=== PATIENT | female | born 1965 | race Caucasian/White ===

== ENCOUNTER → 2018-10-20 | Outpatient (CLI) | payer BC ==
--- NOTE | 2018-10-20 17:03 | REPMRS ---
Patient History The patient states she had a clinical breast exam in 10/2018. Patient is postmenopausal. No known family history of cancer. No Hormone Replacement Therapy Digital Woman Screen Mammo: October 20, 2018 - Exam #: [id number] Bilateral CC and MLO view(s) were taken. Technologist: Gloria Ennis, Technologist Prior study comparison: July 15, 2017, digital woman screen mammo performed at [facility]. July 09, 2016, digital woman screen mammo performed at [facility]. May 09, 2015, digital woman screen mammo performed at [facility]. FINDINGS: The breast tissue is heterogeneously dense. This may lower the sensitivity of mammography. There is a moderate amount of heterogeneously dense fibroglandular tissue which is fairly symmetric. There is no interval development of dominant mass, architectural distortion, or clustered microcalcification typical of malignancy. There has been no change in the appearance of the mammogram from the prior studies. 3-D tomosynthesis shows no additional findings. Assessment: BI-RADS/ACR category 1 mammogram. Negative Mammogram. Recommendation Routine screening mammogram of both breasts in 1 year (for women over age 40). This patient's Lifetime Breast Cancer RIsk is estimated at 12.0 %. This mammogram was interpreted with the aid of an FDA-approved computer-aided dectection system. Electronically Signed By: Tee Ricci MD 10/20/18 [id number]
== END ==
LOC: M WHC 14:09
PROVIDERS: ATTEND Nurse Practitioner Women's Health
DX: Z12.31 Encounter for screening mammogram for malignant neoplasm of breast (principal)

== ENCOUNTER → 2019-11-19 | Outpatient (CLI) | payer BC, OTHER ==
--- NOTE | 2019-11-19 11:38 | REPMRS ---
Patient History The patient states she had a clinical breast exam in November 2019. No known family history of cancer. No Hormone Replacement Therapy Digital Woman Screen Mammo: November 19, 2019 - Exam #: [id number] Bilateral CC and MLO view(s) were taken. Technologist: Emily Diaz, Technologist Prior study comparison: October 20, 2018, bilateral digital woman screen mammo performed at [facility]. July 15, 2017, digital woman screen mammo performed at [facility]. July 09, 2016, digital woman screen mammo performed at [facility]. FINDINGS: The breast tissue is heterogeneously dense. This may lower the sensitivity of mammography. There is a moderate amount of heterogeneously dense fibroglandular tissue which is fairly symmetric. There is no interval development of dominant mass, architectural distortion, or grouped microcalcification typical of malignancy. There has been no change in the appearance of the mammogram from the prior studies. 3-D tomosynthesis shows no additional findings. Assessment: BI-RADS/ACR category 1 mammogram. Negative Mammogram. Recommendation Routine screening mammogram of both breasts in 1 year (for women over age 40). This patient's Lifetime Breast Cancer RIsk is estimated at 11.4 %. This mammogram was interpreted with the aid of an FDA-approved computer-aided dectection system. Electronically Signed By: Tee Ricci MD 11/19/19 [id number]
== END ==
LOC: M WHC 10:29
PROVIDERS: ATTEND Nurse Practitioner Women's Health
DX: Z12.31 Encounter for screening mammogram for malignant neoplasm of breast (principal)

== ENCOUNTER → 2019-11-19 | Outpatient (REF) | payer OTHER | LOC: M SFHCWAGY 13:06 | PROVIDERS: ATTEND Nurse Practitioner Women's Health | DX: Z12.4 Encounter for screening for malignant neoplasm of cervix (principal) ==

== ENCOUNTER → 2020-12-30 | Outpatient (CLI) | payer BC, OTHER ==
--- NOTE | 2020-12-30 10:30 | REPMRS ---
Patient History The patient states she had a clinical breast exam in December 30, 2020. Patient is postmenopausal. No known family history of cancer. Taking estrogen for 4 years. No breast complaints. Pt signed MRS history sheet. Digital Woman Screen Mammo: December 30, 2020 - Exam #: [id number] Bilateral CC and MLO view(s) were taken. Technologist: RT Carmen Prior study comparison: November 19, 2019, bilateral digital woman screen mammo performed at [facility]. October 20, 2018, bilateral digital woman screen mammo performed at [facility]. Screening. Digital screening (2D) mammography was performed bilaterally in the CC and MLO projections. Additionally, breast tomosynthesis (3D mammography) was performed bilaterally in the CC and MLO projections. Today?s exam was compared to the prior exams(s). By history, the patient has no complaints of a palpable breast abnormality or other significant breast complaints. The patient states last clinical breast exam was XXXX. The breasts are unchanged in size and shape. There are no ansley-soft tissue densities or speculated masses. There is no internal architectural distortion. There are no suspicious ansley-calcific clusters. Stable benign appearing calcifications are again seen bilaterally. Skin thickening or nipple retraction is not present. IMPRESSION: BI-RADS Category 2- Benign Findings(s). There is no evidence of malignant alteration of the breasts. Followup examination recommended in one year. The Volpara volumetric breast density category is C, the breasts are heterogenously dense which may obscure small masses. This mammogram was read with the assistance of [employer]One,an FDA approved computer aided detection system for mammography. Negative x-ray reports should not delay surgical consultation if a dominant or clinically suspicious mass is present. Not all breast cancers can be identified by mammography. Therefore, we recommend that you continue to perform regular breast self-examination and physical examination and then promptly contact your physician of any concerns or changes. Adenosis and dens breasts may obscure an underlying neoplasm. Assessment: BI-RADS/ACR category 2 mammogram. Benign Findings. Recommendation Routine screening mammogram of both breasts in 1 year. Electronically Signed By: Jaquan Zuniga DO 12/30/20 [id number]
== END ==
LOC: M WHC 08:46
PROVIDERS: ATTEND Nurse Practitioner Women's Health
DX: Z12.31 Encounter for screening mammogram for malignant neoplasm of breast (principal)